=== PATIENT | female | born 1950 | race Hispanic/Latino ===

== ENCOUNTER 2017-09-29 15:50 | Inpatient (IN) | payer MEDICARE, OTHER ==
--- NOTE | 2017-09-29 17:55 | Emergency Department Report ---
ED General Adult HPI - General Chief complaint: Laceration/Recheck/Suture Stated complaint: HEMATOMA Time Seen by Provider: 09/29/17 17:42 Source: patient, family, EMS (ems notes not available at time of chart dictation), RN notes reviewed, old records reviewed Mode of arrival: Stretcher Limitations: No Limitations - History of Present Illness Initial comments: This is a 67-year-old female who is previously known to this provider. Has a past medical history of hypertension and diabetes, and peripheral artery disease. Patient was at her vascular surgeon's office earlier on today, and was having a stent placed in her bilateral lower extremities. After the procedure, the patient developed a hematoma in her right groin, and was sent to the ER for admission, observation. As per discussion with her vascular surgeon , Dr. Steinberg, after the procedure, patient developed signs of hemorrhagic shock , including hypotension and tachycardia. She got ephedrine. The vascular surgeon also indicated that the patient's hemoglobin decreased from 11-8. He recommended admission for observation, pain control, and packed red blood cell transfusion. The patient only complains of right groin pain. She also indicates that she has some numbness in her right lower extremity. Her symptoms are constant, they do not radiate anywhere, and they do not have exacerbating or relieving factors, with the exception of the right groin hematoma, with the pain increases with palpation. The case was presented to the Hospital physician, Dr. Ferrera, who accepted the patient to the medical service, vascular surgery, Dr. Steinberg is going to follow in consultation. -: Sudden Location: right, lower extremity Radiation: non-radiation Quality: aching Consistency: constant Improves with: medication, rest Worsens with: movement Associated Symptoms: denies other symptoms, other (swelling in the right groin) . denies: confusion, chest pain, cough, diaphoresis, fever/chills, headaches, loss of appetite, malaise, nausea/vomiting, rash, shortness of breath, syncope, weakness - Related Data Home Medications Medication Instructions Recorded Confirmed Last Taken Aspirin BABY CHEW TAB 1 tab PO DAILY 08/27/14 09/04/14 08/26/14 Atorvastatin 20 mg PO DAILY 08/27/14 09/04/14 09/03/14 22:00 Gabapentin 100 mg PO BID 08/27/14 09/04/14 09/03/14 09:30 Gemfibrozil 600 mg PO BID 08/27/14 09/04/14 09/03/14 09:30 Hctz 25 mg PO DAILY 08/27/14 09/04/14 09/03/14 09:30 Invokana 100 mg PO DAILY 08/27/14 09/04/14 09/03/14 09:30 Losartan 100 mg PO DAILY 08/27/14 09/04/14 09/03/14 09:30 Norvasc 10 mg PO DAILY 08/27/14 09/04/14 09/03/14 22:00 Omeprazole 20 mg PO DAILY 08/27/14 09/04/14 09/02/14 Vitamin D2 50,000 tab PO QWEEK 08/27/14 09/04/14 08/28/14 Zoloft 100 mg PO DAILY 08/27/14 09/04/14 09/03/14 09:30 metFORMIN 500 mg PO DAILY 08/27/14 09/04/14 09/03/14 09:30 Allergies Allergy/AdvReac Type Severity Reaction Status Date / Time ibuprofen [From Motrin] Allergy Vomiting Verified 08/27/14 15:32 lisinopril Allergy COUGH Verified 08/27/14 15:32 polythiazide Allergy Rash Verified 08/27/14 15:41 ED Review of Systems ROS: Stated complaint: HEMATOMA Other details as noted in HPI Comment: All other systems reviewed and negative ED Past Medical Hx - Past Medical History Hx Hypertension: Yes Hx Diabetes: Yes Hx GERD: Yes Hx Arthritis: Yes Hx Asthma: No Hx COPD: No Hx HIV: No Additional medical history: PAD, GLUACOMA, HYPERLIPIDEMIA - Surgical History Hx Cholecystectomy: Yes Additional Surgical History: BLE STENT PLACEMENT - Social History Smoking Status: Unknown if ever smoked Substance Use Type: None - Medications Home Medications: Home Medications Medication Instructions Recorded Confirmed Last Taken Type Aspirin BABY CHEW TAB 1 tab PO DAILY 08/27/14 09/04/14 08/26/14 History Atorvastatin 20 mg PO DAILY 08/27/14 09/04/14 09/03/14 22:00 History Gabapentin 100 mg PO BID 08/27/14 09/04/14 09/03/14 09:30 History Gemfibrozil 600 mg PO BID 08/27/14 09/04/14 09/03/14 09:30 History Hctz 25 mg PO DAILY 08/27/14 09/04/14 09/03/14 09:30 History Invokana 100 mg PO DAILY 08/27/14 09/04/14 09/03/14 09:30 History Losartan 100 mg PO DAILY 08/27/14 09/04/14 09/03/14 09:30 History Norvasc 10 mg PO DAILY 08/27/14 09/04/14 09/03/14 22:00 History Omeprazole 20 mg PO DAILY 08/27/14 09/04/14 09/02/14 History Vitamin D2 50,000 tab PO QWEEK 08/27/14 09/04/14 08/28/14 History Zoloft 100 mg PO DAILY 08/27/14 09/04/14 09/03/14 09:30 History metFORMIN 500 mg PO DAILY 08/27/14 09/04/14 09/03/14 09:30 History ED Physical Exam - General Limitations: Physical Limitation General appearance: alert, in no apparent distress - Head Head exam: Present: atraumatic, normocephalic - Eye Eye exam: Present: normal appearance, EOMI. Absent: nystagmus - ENT ENT exam: Present: normal exam, normal orophraynx, mucous membranes moist, normal external ear exam - Neck Neck exam: Present: normal inspection, full ROM - Respiratory Respiratory exam: Present: normal lung sounds bilaterally. Absent: respiratory distress - Cardiovascular Cardiovascular Exam: Present: regular rate, normal rhythm, normal heart sounds. Absent: systolic murmur, diastolic murmur, rubs, gallop - GI/Abdominal GI/Abdominal exam: Present: soft, normal bowel sounds. Absent: distended, tenderness, guarding, rebound, rigid, pulsatile mass - Extremities Exam Extremities exam: Present: normal inspection, tenderness, other (there is a large palpable hematoma in the right groin. It is soft. It is not pulsatile. It is not expansile. It is tender. Distal pulses are appreciated in the bilateral lower extremities. There is a small incision noted in the left groin. ). Absent: pedal edema, joint swelling, calf tenderness - Back Exam Back exam: Present: normal inspection, full ROM. Absent: paraspinal tenderness , vertebral tenderness - Neurological Exam Neurological exam: Present: alert, oriented X3, CN II-XII intact, other ( Extraocular movements intact. Tongue midline. No facial droop. Facial sensation intact to light touch in the V1, V2, V3 distribution bilaterally. 5 and 5 strength in 4 extremities.. Sensation is intact to light touch in 4 extremities.). Absent: motor sensory deficit - Psychiatric Psychiatric exam: Present: normal affect, normal mood - Skin Skin exam: Present: warm, ecchymosis ED Course Vital Signs 09/29/17 16:18 Temperature 97.9 F Pulse Rate 61 Respiratory 18 Rate Blood Pressure 122/37 O2 Sat by Pulse 96 Oximetry ED Medical Decision Making - Lab Data Result diagrams: 09/29/17 18:25 09/29/17 18:25 Vital Signs 09/29/17 16:18 Temperature 97.9 F Pulse Rate 61 Respiratory 18 Rate Blood Pressure 122/37 O2 Sat by Pulse 96 Oximetry Lab Results 09/29/17 09/29/17 09/29/17 Range/Units 18:12 18:25 18:25 WBC 9.2 (4.5-11.0) K/mm3 RBC 3.24 L (3.65-5.03) M/mm3 Hgb 10.0 L (10.1-14.3) gm/dl Hct 28.6 L (30.3-42.9) % MCV 88 (79-97) fl MCH 31 (28-32) pg MCHC 35 H (30-34) % RDW 13.6 (13.2-15.2) % Plt Count 266 (140-440) K/mm3 PT 13.8 (12.2-14.9) Sec. INR 1.01 (0.87-1.13) Sodium (137-145) mmol/L Potassium (3.6-5.0) mmol/L Chloride (98-107) mmol/L Carbon Dioxide (22-30) mmol/L Anion Gap mmol/L BUN (7-17) mg/dL Creatinine (0.7-1.2) mg/dL Estimated GFR ml/min BUN/Creatinine Ratio % Glucose (65-100) mg/dL Calcium (8.4-10.2) mg/dL Total Creatine Kinase (30-135) units/L Blood Type O POSITIVE Antibody Screen Negative Crossmatch See Detail 09/29/17 09/29/17 Range/Units 18:25 18:25 WBC (4.5-11.0) K/mm3 RBC (3.65-5.03) M/mm3 Hgb (10.1-14.3) gm/dl Hct (30.3-42.9) % MCV (79-97) fl MCH (28-32) pg MCHC (30-34) % RDW (13.2-15.2) % Plt Count (140-440) K/mm3 PT (12.2-14.9) Sec. INR (0.87-1.13) Sodium 141 (137-145) mmol/L Potassium 4.0 (3.6-5.0) mmol/L Chloride 103.6 (98-107) mmol/L Carbon Dioxide 25 (22-30) mmol/L Anion Gap 16 mmol/L BUN 19 H (7-17) mg/dL Creatinine 0.6 L (0.7-1.2) mg/dL Estimated GFR > 60 ml/min BUN/Creatinine Ratio 32 % Glucose 109 H (65-100) mg/dL Calcium 7.8 L (8.4-10.2) mg/dL Total Creatine Kinase 28 L (30-135) units/L Blood Type Antibody Screen Crossmatch - Medical Decision Making Differential diagnosis, including without limited to: Groin, postoperative hematoma, hemorrhagic shock Assessment and plan: 67-year-old female who is currently hemodynamically stable , with an expansile right groin hematoma, sent to the ER by vascular surgery for admission, packed red blood cell transfusion, and admission for observation. Critical care attestation.: If time is entered above; I have spent that time in minutes in the direct care of this critically ill patient, excluding procedure time. ED Disposition Clinical Impression: History of anemia Hematoma of leg Qualifiers: Encounter type: initial encounter Laterality: right Qualified Code(s): S80.11XA - Contusion of right lower leg, initial encounter Disposition: DC-09 OP ADMIT IP TO THIS HOSP Is pt being admited?: Yes Condition: Good
[2017-09-29] MEDS ORDERED: SUBLIMAZE IV ONE (18:03)
[2017-09-29] MEDS ORDERED: NACL 0.9% 500 ML 500 ML IV ONE (18:03)
[2017-09-29 18:48] LABS: Hematocrit 28.6 % (30.3-42.9); Mean Corpuscular HGB Conc 35 % (30-34); Mean Corpuscular Hemoglobin 31 pg (28-32); Mean Corpuscular Volume 88 fl (79-97); Platelet Count 266 K/mm3 (140-440); Red Blood Count 3.24 M/mm3 (3.65-5.03); Red Cell Distribution Width 13.6 % (13.2-15.2)
[2017-09-29 19:00] LABS: INR 1.01 (0.87-1.13)
[2017-09-29 19:18] LABS: BUN/Creatinine Ratio 32; Blood Urea Nitrogen 19 mg/dL (7-17); Calcium 7.8 mg/dL (8.4-10.2); Hemolysis Index 3
[2017-09-29] MEDS ORDERED: NACL 0.9% 500 ML 500 ML ONE (21:53)
--- NOTE | 2017-09-30 00:04 | History and Physical Report ---
History of Present Illness Date of examination: 09/29/17 Date of admission: 09/29/17 20:09 Chief complaint: Chief complaint: Right groin hematoma after procedure today History of present illness: History of Present Illness: 67-year-old female with past medical history of hypertension and diabetes, and peripheral artery disease was at her vascular surgeon's office earlier on today , and was having a stent placed in her bilateral lower extremities. After the procedure, the patient developed a hematoma in her right groin, and was sent to the ER for admission, observation. As per discussion with her vascular surgeon , Dr. Steinberg, after the procedure, patient developed signs of hemorrhagic shock , including hypotension and tachycardia. She got ephedrine. The vascular surgeon also indicated that the patient's hemoglobin decreased from 11-8. He recommended admission for observation, pain control, and packed red blood cell transfusion. The patient only complains of right groin pain. She also indicates that she has some numbness in her right lower extremity. Her symptoms are constant, they do not radiate anywhere, and they do not have exacerbating or relieving factors, with the exception of the right groin hematoma, with the pain increases with palpation. Past Medical History Hx Hypertension: Yes Hx Diabetes: Yes Hx GERD: Yes Hx Arthritis: Yes Additional medical history: PAD, GLUACOMA, HYPERLIPIDEMIA Surgical History Hx Cholecystectomy: Yes Additional Surgical History: BLE STENT PLACEMENT Social History Smoking Status: Unknown if ever smoked Substance Use Type: None Family history Htn - Medications Home Medications: Home Medications Medication Instructions Recorded Confirmed Last Taken Type Aspirin BABY CHEW TAB 1 tab PO DAILY 08/27/14 09/04/14 08/26/14 History Atorvastatin 20 mg PO DAILY 08/27/14 09/04/14 09/03/14 22:00 History Gabapentin 100 mg PO BID 08/27/14 09/04/14 09/03/14 09:30 History Gemfibrozil 600 mg PO BID 08/27/14 09/04/14 09/03/14 09:30 History Hctz 25 mg PO DAILY 08/27/14 09/04/14 09/03/14 09:30 History Invokana 100 mg PO DAILY 08/27/14 09/04/14 09/03/14 09:30 History Losartan 100 mg PO DAILY 08/27/14 09/04/14 09/03/14 09:30 History Norvasc 10 mg PO DAILY 08/27/14 09/04/14 09/03/14 22:00 History Omeprazole 20 mg PO DAILY 08/27/14 09/04/14 09/02/14 History Vitamin D2 50,000 tab PO QWEEK 08/27/14 09/04/14 08/28/14 History Zoloft 100 mg PO DAILY 08/27/14 09/04/14 09/03/14 09:30 History metFORMIN 500 mg PO DAILY 08/27/14 09/04/14 09/03/14 09:30 History Medications and Allergies Allergies Allergy/AdvReac Type Severity Reaction Status Date / Time ibuprofen [From Motrin] Allergy Vomiting Verified 08/27/14 15:32 lisinopril Allergy COUGH Verified 08/27/14 15:32 polythiazide Allergy Rash Verified 08/27/14 15:41 Home Medications Medication Instructions Recorded Confirmed Last Taken Type Aspirin BABY CHEW TAB 1 tab PO DAILY 08/27/14 09/04/14 08/26/14 History Atorvastatin 20 mg PO DAILY 08/27/14 09/04/14 09/03/14 22:00 History Gabapentin 100 mg PO BID 08/27/14 09/04/14 09/03/14 09:30 History Gemfibrozil 600 mg PO BID 08/27/14 09/04/14 09/03/14 09:30 History Hctz 25 mg PO DAILY 08/27/14 09/04/14 09/03/14 09:30 History Invokana 100 mg PO DAILY 08/27/14 09/04/14 09/03/14 09:30 History Losartan 100 mg PO DAILY 08/27/14 09/04/14 09/03/14 09:30 History Norvasc 10 mg PO DAILY 08/27/14 09/04/14 09/03/14 22:00 History Omeprazole 20 mg PO DAILY 08/27/14 09/04/14 09/02/14 History Vitamin D2 50,000 tab PO QWEEK 08/27/14 09/04/14 08/28/14 History Zoloft 100 mg PO DAILY 08/27/14 09/04/14 09/03/14 09:30 History metFORMIN 500 mg PO DAILY 08/27/14 09/04/14 09/03/14 09:30 History Review of Systems All systems: negative Musculoskeletal: other (severe hematoma in the right groin about 15 cm x 20 cm) Exam - Constitutional Vitals: Temp Pulse Resp BP Pulse Ox 98.1 F 86 19 150/47 93 09/29/17 22:05 09/29/17 23:50 09/29/17 23:50 09/29/17 23:50 09/29/17 23:50 General appearance: Present: no acute distress, well-nourished - EENT Eyes: Present: PERRL ENT: hearing intact, clear oral mucosa - Neck Neck: Present: supple, normal ROM - Respiratory Respiratory effort: normal Respiratory: bilateral: CTA - Cardiovascular Rhythm: regular Heart Sounds: Present: S1 & S2. Absent: rub, click - Extremities Extremities: no ischemia, pulses intact, pulses symmetrical, No edema Extremity abnormal: other (severe have abdominal 15 X 20 cm right groin) Peripheral Pulses: within normal limits - Abdominal General gastrointestinal: Present: soft, non-tender, non-distended, normal bowel sounds Female genitourinary: Present: normal - Integumentary Integumentary: Present: clear, warm, dry - Musculoskeletal Musculoskeletal: gait normal, strength equal bilaterally - Psychiatric Psychiatric: appropriate mood/affect, intact judgment & insight - Neurologic Neurologic: CNII-XII intact, moves all extremities Results - Labs CBC & Chem 7: 09/29/17 18:25 09/29/17 18:25 Labs: Laboratory Last Values WBC 9.2 K/mm3 (4.5-11.0) 09/29/17 18:25 RBC 3.24 M/mm3 (3.65-5.03) L 09/29/17 18:25 Hgb 10.0 gm/dl (10.1-14.3) L 09/29/17 18:25 Hct 28.6 % (30.3-42.9) L 09/29/17 18:25 MCV 88 fl (79-97) 09/29/17 18:25 MCH 31 pg (28-32) 09/29/17 18:25 MCHC 35 % (30-34) H 09/29/17 18:25 RDW 13.6 % (13.2-15.2) 09/29/17 18:25 Plt Count 266 K/mm3 (140-440) 09/29/17 18:25 PT 13.8 Sec. (12.2-14.9) 09/29/17 18:25 INR 1.01 (0.87-1.13) 09/29/17 18:25 Sodium 141 mmol/L (137-145) 09/29/17 18:25 Potassium 4.0 mmol/L (3.6-5.0) 09/29/17 18:25 Chloride 103.6 mmol/L (98-107) 09/29/17 18:25 Carbon Dioxide 25 mmol/L (22-30) 09/29/17 18:25 Anion Gap 16 mmol/L 09/29/17 18:25 BUN 19 mg/dL (7-17) H 09/29/17 18:25 Creatinine 0.6 mg/dL (0.7-1.2) L 09/29/17 18:25 Estimated GFR > 60 ml/min 09/29/17 18:25 BUN/Creatinine Ratio 32 % 09/29/17 18:25 Glucose 109 mg/dL (65-100) H 09/29/17 18:25 Calcium 7.8 mg/dL (8.4-10.2) L 09/29/17 18:25 Total Creatine Kinase 28 units/L (30-135) L 09/29/17 18:25 Blood Type O POSITIVE 09/29/17 18:12 Antibody Screen Negative 09/29/17 18:12 Crossmatch See Detail 09/29/17 18:12 Assessment and Plan Advance Directives: Yes (full code) VTE prophylaxis?: Mechanical Plan of care discussed with patient/family: Yes - Patient Problems (1) Hematoma of leg Current Visit: Yes Status: Acute Qualifiers: Encounter type: initial encounter Laterality: right Qualified Code(s): S80.11XA - Contusion of right lower leg, initial encounter Plan to address problem: Procedure compression Transfuse if necessary (2) Hypertension Current Visit: Yes Status: Chronic Qualifiers: Hypertension type: essential hypertension Qualified Code(s): I10 - Essential (primary) hypertension Plan to address problem: Continue antihypertensives (3) T2DM (type 2 diabetes mellitus) Current Visit: Yes Status: Acute Plan to address problem: Continue oral hypoglycemics and insulin coverage 6 hemoglobin A1c (4) Hyperlipidemia Current Visit: Yes Status: Chronic Qualifiers: Hyperlipidemia type: mixed hyperlipidemia Qualified Code(s): E78.2 - Mixed hyperlipidemia Plan to address problem: Continue statins (5) GERD (gastroesophageal reflux disease) Current Visit: Yes Status: Chronic Qualifiers: Esophagitis presence: without esophagitis Qualified Code(s): K21.9 - Gastro -esophageal reflux disease without esophagitis Plan to address problem: Continue PPIs (6) Peripheral arterial disease Current Visit: Yes Status: Chronic Plan to address problem: Vascular surgery consult (7) DVT prophylaxis Current Visit: Yes Status: Acute Plan to address problem: only SCDs No heparin or Lovenox
[2017-09-30] MEDS ORDERED: AMBIEN PO PRN (00:08)
[2017-09-30] MEDS ORDERED: SODIUM CHLORIDE FLUSH SYRINGE 10 ML IV PRN (00:08)
[2017-09-30] MEDS ORDERED: PERCOCET 5/325 PO PRN (00:08)
[2017-09-30] MEDS ORDERED: ZOFRAN IV PRN (00:08)
[2017-09-30] MEDS ORDERED: MORPHINE IV PRN (00:08)
[2017-09-30] MEDS ORDERED: GEMFIBROZIL 600 MG PO SCH (00:15)
[2017-09-30] MEDS: HumaLOG SUB-Q SCH ×4 (08:00→23:25)
[2017-09-30] MEDS: COZAAR PO SCH (09:00)
[2017-09-30] MEDS: NORVASC PO SCH (09:00)
[2017-09-30] MEDS ORDERED: NON-FORMULARY (Atorvastatin 20 MG) PO SCH (10:00)
[2017-09-30] MEDS ORDERED: NON-FORMULARY (Gabapentin 100 MG) PO SCH (10:00)
[2017-09-30] MEDS ORDERED: NON-FORMULARY (Metformin 500 MG) PO SCH (10:00)
[2017-09-30] MEDS ORDERED: NON-FORMULARY (Zoloft 100 MG) PO SCH (10:00)
[2017-09-30] MEDS ORDERED: NON-FORMULARY (Losartan 100 MG) PO SCH (10:00)
[2017-09-30] MEDS ORDERED: NON-FORMULARY (Norvasc 10 MG) PO SCH (10:00)
[2017-09-30] MEDS ORDERED: NON-FORMULARY (Omeprazole 20 MG) PO SCH (10:00)
[2017-09-30 10:10] LABS: Hematocrit 31.5 % (30.3-42.9); Hemoglobin 10.9 gm/dl (10.1-14.3)
[2017-09-30] MEDS: ZOLOFT PO SCH (10:41)
[2017-09-30] MEDS: PROTONIX PO SCH (10:42)
[2017-09-30] MEDS: NEURONTIN PO SCH ×2 (10:42→23:26)
[2017-09-30] MEDS: SODIUM CHLORIDE FLUSH SYRINGE 10 ML IV SCH ×2 (10:43→23:31)
[2017-09-30] MEDS: GLUCOPHAGE PO SCH (10:46)
[2017-09-30] MEDS: LOPID PO SCH ×2 (10:46→19:13)
--- NOTE | 2017-09-30 12:25 | Progress Note ---
Assessment and Plan S/P bilateral Iliac artery angioplasty and stent with extravasation from the right femoral access site requiring stent graft placement. She was transfused 2 units of PRBC and has no evidence of active bleeding at this time. Recommend ambulation this afternoon. If the patient can ambulate without complication, ok to discharge home from a vascular surgery standpoint. Subjective Date of service: 09/30/17 Interval history: The patient is without complaints. She denies any leg pain at this time. Objective - Constitutional Vitals: Vital Signs - 12hr 09/30/17 09/30/17 09/30/17 00:20 00:30 00:40 Temperature Pulse Rate 80 80 82 Respiratory 13 16 21 Rate Blood Pressure 151/47 139/45 139/45 Blood Pressure [Left] O2 Sat by Pulse 95 95 93 Oximetry 09/30/17 09/30/17 09/30/17 00:50 02:00 07:30 Temperature 99.1 F 97.9 F Pulse Rate 86 79 80 Respiratory 12 18 20 Rate Blood Pressure 145/49 Blood Pressure 151/55 136/46 [Left] O2 Sat by Pulse 94 94 90 Oximetry General appearance: Present: no acute distress - Respiratory Respiratory effort: normal - Cardiovascular Rhythm: regular Extremities: no ischemia, normal temperature Extremity abnormal: other (bilateral groins are soft, right groin with ecchymosis no pulsatile mass) - Gastrointestinal General gastrointestinal: Present: soft, non-tender, non-distended - Labs CBC & Chem 7: 09/30/17 09:36 09/29/17 18:25 Labs: Abnormal lab results 09/29/17 09/29/17 09/29/17 Range/Units 18:12 18:25 18:25 RBC 3.24 L (3.65-5.03) M/mm3 Hgb 10.0 L (10.1-14.3) gm/dl Hct 28.6 L (30.3-42.9) % MCHC 35 H (30-34) % BUN 19 H (7-17) mg/dL Creatinine 0.6 L (0.7-1.2) mg/dL Glucose 109 H (65-100) mg/dL POC Glucose (70-105) Hemoglobin A1c (4-6) % Calcium 7.8 L (8.4-10.2) mg/dL Total Creatine Kinase (30-135) units/L Crossmatch See Detail 09/29/17 09/30/17 09/30/17 Range/Units 18:25 00:19 08:26 RBC (3.65-5.03) M/mm3 Hgb (10.1-14.3) gm/dl Hct (30.3-42.9) % MCHC (30-34) % BUN (7-17) mg/dL Creatinine (0.7-1.2) mg/dL Glucose (65-100) mg/dL POC Glucose 135 H (70-105) Hemoglobin A1c 6.5 H (4-6) % Calcium (8.4-10.2) mg/dL Total Creatine Kinase 28 L (30-135) units/L Crossmatch 09/30/17 Range/Units 11:20 RBC (3.65-5.03) M/mm3 Hgb (10.1-14.3) gm/dl Hct (30.3-42.9) % MCHC (30-34) % BUN (7-17) mg/dL Creatinine (0.7-1.2) mg/dL Glucose (65-100) mg/dL POC Glucose 123 H (70-105) Hemoglobin A1c (4-6) % Calcium (8.4-10.2) mg/dL Total Creatine Kinase (30-135) units/L Crossmatch
--- NOTE | 2017-09-30 12:43 | Discharge Summary ---
Providers - Providers Date of Admission: 09/29/17 20:09 Date of discharge: 09/30/17 Attending physician: HARISH GAY 09/29/17 18:03 Consult to Physician [CONS] Urgent Comment: Consulting Provider: LIBBY PRADO Physician Instructions: Reason For Exam: hematoma Primary care physician: [facility] Hospitalization Condition: Good Disposition: DC-01 TO HOME OR SELFCARE Core Measure Documentation - Palliative Care Palliative Care/ Comfort Measures: Not Applicable - Core Measures Any of the following diagnoses?: none Exam - Constitutional Vitals: Temp Pulse Resp BP Pulse Ox 97.9 F 80 20 136/46 90 09/30/17 07:30 09/30/17 07:30 09/30/17 07:30 09/30/17 07:30 09/30/17 07:30 Plan Activity: advance as tolerated Diet: low fat, low cholesterol, low salt, diabetic Additional Instructions: 1.Follow up with PCP in 1 week. 2.Follow up with Dr. Stevo Stone in 3-5 days Follow up with: PRIMARY MD JOSE [Primary Care Provider] - 3-5 Days
--- NOTE | 2017-09-30 14:49 | Progress Note ---
Assessment and Plan Assessment and plan: hematoma right groin after vascular procedure. No further bleeding. H/H stable. Was abut to discharge home but patient now has fever of 100.5 so dc cancelled. Fever of 100.5 Get Blood cultures, Chest X ray Monitor. cancel intended discharge Hypertensiion. BP stable Diabetes mellitus type 2. Check fingerstick Qac and hs DVT prophylaxis. SCDs only because of hematoma. Full code status Hospitalist Physical - Physical exam Narrative exam: General: Not in acute distress, HEENT:Normocephalic, atraumatic Neck:supple,no JVD Lungs: Clear to auscultation bilaterally, no crackles, no wheeze Heart:S1 and S2 regular, no murmurs, rubs or gallop Abd: soft, non tender,non distended, normal bowel sounds Ext: hematoma right groin, no clubbing or cyanosis Neuro: AAO x 3, moves all extremitiies. - Constitutional Vitals: Temp Pulse Resp BP Pulse Ox 100.5 F H 91 H 20 151/51 93 09/30/17 13:14 09/30/17 13:14 09/30/17 13:14 09/30/17 13:14 09/30/17 13:14 General appearance: Present: no acute distress Results - Labs CBC & Chem 7: 09/30/17 09:36 09/29/17 18:25 Labs: Laboratory Last Values WBC 9.2 K/mm3 (4.5-11.0) 09/29/17 18:25 RBC 3.24 M/mm3 (3.65-5.03) L 09/29/17 18:25 Hgb 10.9 gm/dl (10.1-14.3) 09/30/17 09:36 Hct 31.5 % (30.3-42.9) 09/30/17 09:36 MCV 88 fl (79-97) 09/29/17 18:25 MCH 31 pg (28-32) 09/29/17 18:25 MCHC 35 % (30-34) H 09/29/17 18:25 RDW 13.6 % (13.2-15.2) 09/29/17 18:25 Plt Count 266 K/mm3 (140-440) 09/29/17 18:25 PT 13.8 Sec. (12.2-14.9) 09/29/17 18:25 INR 1.01 (0.87-1.13) 09/29/17 18:25 Sodium 141 mmol/L (137-145) 09/29/17 18:25 Potassium 4.0 mmol/L (3.6-5.0) 09/29/17 18:25 Chloride 103.6 mmol/L (98-107) 09/29/17 18:25 Carbon Dioxide 25 mmol/L (22-30) 09/29/17 18:25 Anion Gap 16 mmol/L 09/29/17 18:25 BUN 19 mg/dL (7-17) H 09/29/17 18:25 Creatinine 0.6 mg/dL (0.7-1.2) L 09/29/17 18:25 Estimated GFR > 60 ml/min 09/29/17 18:25 BUN/Creatinine Ratio 32 % 09/29/17 18:25 Glucose 109 mg/dL (65-100) H 09/29/17 18:25 POC Glucose 123 (70-105) H 09/30/17 11:20 Hemoglobin A1c 6.5 % (4-6) H 09/30/17 00:19 Calcium 7.8 mg/dL (8.4-10.2) L 09/29/17 18:25 Total Creatine Kinase 28 units/L (30-135) L 09/29/17 18:25 Blood Type O POSITIVE 09/29/17 18:12 Antibody Screen Negative 09/29/17 18:12 Crossmatch See Detail 09/29/17 18:12
[2017-09-30] MEDS: TYLENOL PO PRN (14:56)
--- NOTE | 2017-09-30 16:27 | XRay Report ---
FINAL REPORT PROCEDURE: XR CHEST ROUTINE 2V TECHNIQUE: PA and lateral chest radiographs were obtained. CPT 21063 HISTORY: fever COMPARISON: No prior studies are available for comparison. FINDINGS: Heart: Normal. Mediastinum/Vessels: Normal. Lungs/Pleural space: No infiltrate, effusion, or pneumothorax. Bony thorax: No acute osseous abnormality. Other: IMPRESSION: No pulmonary infiltrates are identified.
[2017-09-30] MEDS ORDERED: LATANOPROST 0.005% OS SCH (22:00)
[2017-09-30] MEDS ORDERED: NON-FORMULARY (Latanoprost 0.005% 1 DROP) OS SCH (22:00)
[2017-09-30] MEDS: NACL 0.9% 1000 ML 1,000 ML IV SCH (23:30)
[2017-10-01 05:39] LABS: Basophils % (Auto) 0.5 % (0.0-1.8); Eosinophils # (Auto) 0.1 K/mm3 (0.0-0.4); Eosinophils % (Auto) 1.6 % (0.0-4.3); Hematocrit 30.6 % (30.3-42.9); Hemoglobin 10.2 gm/dl (10.1-14.3); Lymphocytes # (Auto) 1.3 K/mm3 (1.2-5.4); Lymphocytes % (Auto) 15.2 % (13.4-35.0); Mean Corpuscular HGB Conc 33 % (30-34); Mean Corpuscular Hemoglobin 30 pg (28-32); Mean Corpuscular Volume 90 fl (79-97); Monocytes % (Auto) 11.7 % (0.0-7.3); Platelet Count 199 K/mm3 (140-440); Red Cell Distribution Width 14.1 % (13.2-15.2)
[2017-10-01] MEDS: HumaLOG SUB-Q SCH ×2 (07:30→11:30)
[2017-10-01] MEDS: GLUCOPHAGE PO SCH (08:00)
[2017-10-01] MEDS: LOPID PO SCH (08:00)
[2017-10-01] MEDS: NORVASC PO SCH (10:24)
[2017-10-01] MEDS: NEURONTIN PO SCH (10:24)
[2017-10-01] MEDS: COZAAR PO SCH (10:25)
[2017-10-01] MEDS: SODIUM CHLORIDE FLUSH SYRINGE 10 ML IV SCH (10:25)
[2017-10-01] MEDS: ZOLOFT PO SCH (10:25)
[2017-10-01] MEDS: PROTONIX PO SCH (10:25)
--- NOTE | 2017-10-01 12:36 | Progress Note ---
Assessment and Plan Doing well. Kept over night for fever. CXR was negative for acute process. Blood culture are without growth at this point and no further fevers. She denies claudication but has some burning sensation in the right groin area that is likely secondary to irritation of the nerve, from the hematoma. Recommend warm compress PRN for comfort. Patient is otherwise clinically ready for discharge home from a vascular surgery standpoint. Subjective Date of service: 10/01/17 Interval history: Patient complains of some burning in her right groin with ambulation however she denies claudication. She has no other complaints. Objective - Constitutional Vitals: Vital Signs - 12hr 10/01/17 10/01/17 02:11 08:58 Temperature 99.4 F 99.5 F Pulse Rate 85 20 L Respiratory 20 20 Rate Blood Pressure 151/48 Blood Pressure 157/50 [Left] O2 Sat by Pulse 93 92 Oximetry General appearance: Present: no acute distress - Neck Neck: supple - Respiratory Respiratory effort: normal - Cardiovascular Rhythm: regular Extremities: no ischemia, normal temperature Extremity abnormal: other (stable ecchymosis right groin without palpable mass, non left groin hematoma) - Gastrointestinal General gastrointestinal: Present: soft, non-tender, non-distended - Labs CBC & Chem 7: 10/01/17 05:18 09/29/17 18:25 Labs: Abnormal lab results 09/30/17 09/30/17 10/01/17 Range/Units 17:07 22:46 05:18 RBC 3.40 L (3.65-5.03) M/mm3 [place] % (Auto) 11.7 H (0.0-7.3) % [place] # 1.0 H (0.0-0.8) K/mm3 Seg Neutrophils % 71.0 H (40.0-70.0) % POC Glucose 108 H 127 H (70-105) 10/01/17 10/01/17 Range/Units 07:46 11:36 RBC (3.65-5.03) M/mm3 [place] % (Auto) (0.0-7.3) % [place] # (0.0-0.8) K/mm3 Seg Neutrophils % (40.0-70.0) % POC Glucose 171 H 131 H (70-105)
[2017-10-01] MEDS: NACL 0.9% 1000 ML 1,000 ML IV SCH (13:12)
[2017-10-01 15:46] VITALS: BP 143/44
[2017-10-01] MEDS: TYLENOL PO PRN (15:56)
[2017-10-01] MEDS ORDERED: PLAVIX PO SCH (16:00)
[2017-10-01] MEDS ORDERED: NON-FORMULARY (Aspirin Baby Chew Tab 1 TAB) PO SCH (16:00)
[2017-10-01] MEDS ORDERED: BABY ASPIRIN PO SCH (16:40)
== END 2017-10-01 16:55 | disposition home or self-care (01) | DRG 921 ==
LOC: ED 15:50 → 2B-ACE 20:09
PROVIDERS: ADMIT Internal Medicine; ATTEND Internal Medicine
PROC: 30233N1 Transfusion of Nonautologous Red Blood Cells into Peripheral Vein, Percutaneous Approach (ICD-10-PCS; principal; 2017-09-29)
DX: L76.32 Postprocedural hematoma of skin and subcutaneous tissue following other procedure (principal); Y83.8 Other surgical procedures as the cause of abnormal reaction of the patient, or of later complication, without mention of misadventure at the time of the procedure; Y92.238 Other place in hospital as the place of occurrence of the external cause; I10 Essential (primary) hypertension; E11.51 Type 2 diabetes mellitus with diabetic peripheral angiopathy without gangrene; K21.9 Gastro-esophageal reflux disease without esophagitis; M19.90 Unspecified osteoarthritis, unspecified site; S80.11XA Contusion of right lower leg, initial encounter; E78.5 Hyperlipidemia, unspecified; Z90.49 Acquired absence of other specified parts of digestive tract; Z82.49 Family history of ischemic heart disease and other diseases of the circulatory system; Z79.899 Other long term (current) drug therapy; Z79.82 Long term (current) use of aspirin; Z95.820 Peripheral vascular angioplasty status with implants and grafts
CPT/HCPCS: 36415; 71046; 80048; 82550; 82962; 83036; 85014; 85018; 85025; 85027; 85610; 86850; 86900; 86901; 86920; 87040; A9270-GY; J1815; J7030; J7040; P9016